=== PATIENT | male | born 2000 ===

== ENCOUNTER 2023-07-15 11:42 | Observation (INO) | payer OTHER, SELFPAY ==
[2023-07-15 14:22] VITALS: BMI 23.6
[2023-07-15] MEDS ORDERED: Ondansetron PF 4 MG/2 ML Vial IVP PRN (14:24)
[2023-07-15] MEDS ORDERED: Ondansetron ODT 4 MG TAB PO PRN (14:24)
[2023-07-15] MEDS ORDERED: Acetaminophen 325 MG TAB PO PRN (14:24)
[2023-07-15] MEDS ORDERED: FLU VACC QS2023-24(6MOS UP)/PF 60 MCG/0.5 ML SYRINGE IM ONE (14:30)
[2023-07-15 21:06] LABS: Bilirubin Neg (Negative); Blood, Urine Negative (Negative); Clarity Clear (Clear); Glucose, Urine (Dipstick) Normal (Negative); Ketone, Urine Negative (Negative); Leukocyte Negative (Negative); Nitrite Negative (Negative); Protein, Urine (Dipstick) 15 mg/dl (Neg-Trace); Specific Gravity, Urine 1.015 (1.005-1.030); Urobilinogen Normal mg/dL (Less than 2); pH, Urine 6.5 (5.0-9.0)
[2023-07-15 21:25] LABS: RBC/HPF None Seen HPF (0-3); Squamous Epithelial 0-3 HPF (0-3); WBC/HPF 0-3 HPF (0-3)
[2023-07-15 21:26] LABS: Bacteria/HPF Rare-Few HPF (None Seen)
[2023-07-16 04:43] LABS: Anion Gap 13 mmol/L (10-20); BUN (Urea Nitrogen) 16 mg/dL (8.9-20.6); CK (CPK) 73 U/L (30-200); Calc. Creatinine Clearance 50 mL/min (70-130); Calcium 9.1 mg/dL (7.8-10.44); Carbon Dioxide 26 mmol/L (22-29); Chloride 107 mmol/L (98-107); Estimated GFR 40; Glucose 103 mg/dL (70-105); Potassium 3.7 mmol/L (3.5-5.1); Sodium 142 mmol/L (136-145)
[2023-07-16 12:13] VITALS: BP 127/75; TEMP 98.2
== END 2023-07-16 14:09 | disposition home or self-care (01) ==
LOC: CSHTELE 12:56
PROVIDERS: ADMIT Internal Medicine; ATTEND Internal Medicine
DX: N17.9 Acute kidney failure, unspecified (principal); I12.9 Hypertensive chronic kidney disease with stage 1 through stage 4 chronic kidney disease, or unspecified chronic kidney disease; N18.4 Chronic kidney disease, stage 4 (severe); D64.9 Anemia, unspecified; R79.89 Other specified abnormal findings of blood chemistry; Z79.891 Long term (current) use of opiate analgesic
CPT/HCPCS: 36415; 76770; 80048; 81001; 82550; 82570; 83690; 84156; G0378